=== PATIENT | male | born 1995 | race African-American/Black ===

== ENCOUNTER 2017-02-11 22:15 | Emergency (ER) | payer OTHER ==
--- NOTE | 2017-02-15 09:08 | ER ---
ADMIT: 02/11/2017 RM/LOC: ER [facility] MR#: [id number] [address] [id number] KAIN GARCIA [address] [address] Emergency Room Report SEX: M AGE: 21 : 1995 DATE: 02/11/2017 CHIEF COMPLAINT: Toothache. HISTORY OF PRESENT ILLNESS: This is a 21-year-old male, presents with family complaining of increased dental pain. States he was in to see Dr. Dorsey, a dentist in October 2016 for some tooth pain. He started a root canal, was unable to finish this, referred to a Dr. Robertson Overton for endodontic repair and completion of this procedure. He was covered in calcium hydroxide and referred. They went to see him. They were unable to afford his service as it requires an $800 upfront fee. States he has just been living with this temporary solution without much problems. However over the last day, he has had increased pain on the affected tooth worse with heat, cold, and chewing and jaw pain. He does have appointment next week to see [facility] for further evaluation management of his dental complaint. COURSE IN THE EMERGENCY ROOM: The patient was seen and examined. PHYSICAL EXAMINATION: GENERAL: He was afebrile and nontoxic. He is in no acute distress. NECK: Soft and supple. No lymphadenopathy. No tenderness of the neck. HEENT: Head is normocephalic and atraumatic. No drooling. Mouth; he does have calcium hydroxide cap on tooth #4 consistent with the dental procedure described in the note he provided today. There is no obvious infection about the root of the tooth. It is tender to touch when . I did inject this with bupivacaine today dental block fashion and had immediate relief of pain. I did give him first dose of amoxicillin 500 mg p.o., provided a script for [place] 3/325, 1 to 2 tabs every 4 to 6 hours as needed for pain #20. IMPRESSION: Tooth pain. DISPOSITION: The patient is to use [place] 5/325, 1 to 2 tabs every 4 to 6 hours as needed for pain #20, amoxicillin 500 mg p.o. b.i.d. for 5 days. Follow up with dentist in [facility] as scheduled to see Dr. Duarte if he continues to have pain. Certainly, cannot drive while taking narcotics. Cautioned not to use Tylenol while using the [place]. Return with worsening signs or symptoms. Questions sought and answered to the best of my ability and to the patient's satisfaction. Discharged in stable condition. LIO Whyte / Perez Núñez MD / enzol JOB #: [id number] CC: Perez Núñez MD, Attending Physician George Duarte MD, Family Physician
== END 2017-02-11 23:35 | disposition home or self-care (01) ==
LOC: ER 22:15
PROC: 3E0T3CZ (ICD-10-PCS; principal; 2017-02-11)
DX: K08.89 Other specified disorders of teeth and supporting structures (principal); J45.909 Unspecified asthma, uncomplicated